=== PATIENT | female | born 1970 | race Caucasian/White ===

== ENCOUNTER 2018-11-02 05:35 | Day surgery (SDC) | payer BC ==
[~2018-11-02] VITALS: Ht 172.7 cm; Wt 74.8 kg
--- NOTE | ~2018-11-02 | OR ---
[facility] [address], [place] [address] [place] DATE OF OPERATION: 11/02/2018 SURGEON: Aaron Valenzuela MD PREOPERATIVE DIAGNOSIS: Rotator cuff tear/superior labral tear from anterior to posterior right shoulder. POSTOPERATIVE DIAGNOSIS: Partial thickness rotator cuff tear, right shoulder with impingement of acromioclavicular joint arthritis right shoulder. There was labral fraying but no superior labral tear from anterior to posterior tear. WHAT WAS DONE: The patient was taken to the operating room. After anesthesia was induced and airway secured, the patient was positioned, prepped and draped in a routine sterile fashion. The bony topography was outlined with a skin marking pen, and the arthroscope was inserted through the standard posterior portal. Arthroscopy of the shoulder joint revealed an unremarkable humeral head and unremarkable labrum. There was a tiny amount of fraying at the insertion of the supraspinatus and the infraspinatus, but no full-thickness tears were noted. An anterior portal was created using a switching stick technique and a probe was introduced. Again, there was some fraying of the labrum and the undersurface of the supraspinatus and infraspinatus as well as some fraying of the long head of the biceps. This was gently debrided with a VAPR electrosurgical device inserted through the anterior portal. Once this had been gently debrided, the probe was re-introduced and again we could not identify any full-thickness rotator cuff tear. There was some fraying of the long head of the biceps but over 80% of it was intact and there was no significant longitudinal split. We probed the labrum carefully with a probe and again there was no SLAP tear, just the anterior fraying. After we debrided all the frayed tissue, the scope was placed in the subacromial space, where there was a rather dense bursitis. An auxiliary lateral portal was created and a subacromial bursectomy was performed. Again careful inspection of the rotator cuff did not reveal any tears on the bursal side. We then used the VAPR to remove the soft tissue on the undersurface of the acromion, which was hooked anteriorly and the undersurface of the AC joint which had fairly significant degenerative arthritis with no residual articular cartilage on the end of the clavicle. After doing a generous subacromial decompression through the lateral portal, we re-directed the anterior portal into the AC joint and resected about 8 mm of the distal clavicle completely decompressing the rotator cuff and the AC joint. The subacromial space was then copiously irrigated and drained. The portals were closed and sterile dressings were applied. The patient was awakened and taken to the recovery room PATIENT NAME: CHRIS SARKAR OPERATIVE REPORT DATE OF : 72 REPORT #: [id number] PHYSICIAN: AARON VALENZUELA MD PCP: CHER ELDER MD REPORT IS CONFIDENTIAL AND NOT TO BE RELEASED WITHOUT AUTHORIZATION [address] [address] [place] and they arrived in stable condition. Counts were correct and antibiotic protocols were followed. Aaron Valenzuela MD WFB/MODL /[id number] Copies: ~ PATIENT NAME: CHRIS SARKAR OPERATIVE REPORT DATE OF : 72 REPORT #: [id number] PHYSICIAN: AARON VALENZUELA MD PCP: CHER ELDER MD REPORT IS CONFIDENTIAL AND NOT TO BE RELEASED WITHOUT AUTHORIZATION
[~2018-11-02 05:35] MED LIST: ATENOLOL50 MG PO; HYDROCHLOROTH12.5 MG PO; NORCO 7.5-3251 EACH PO; OMEPRAZOLE20 MG PO; TRAMADOL HCL50 MG PO; VENLAFAXINE HC100 MG PO
--- NOTE | 2018-11-02 08:40 | NUR ---
11/02/18 0840 [place] 0822-PATIENT ARRIVED TO PACU ON 6L MASK REACTIVE TO VOICE OPENING EYES VERY DROWSY. DENIES PAIN ABLE TO WIGGLE FINGERS GOOD CAP REFILL AND PALPABLE RIGHT RADIAL PULSE. ARM IN SLING AND ICE APPLIED. 3 SHOULDER INCISIONS CDI. SR. RR EVEN.
--- NOTE | 2018-11-02 09:20 | NUR ---
PT RETURNS TO DS TX ROOM FROM PACU ON . PT AWAKE AND ORIENTED AND DENIES PAIN, ONLY TINGLING IN OPERATIVE RIGHT UPPER EXTREMITY. PT DENIES NAUSEA. VSS. PT PROVIDED WITH WATER, SODA, AND FOOD. PT DENIES OTHER NEEDS AT THIS TIME. MOTHER AT BEDSIDE. CALL LIGHT WITHIN REACH
--- NOTE | 2018-11-02 09:43 | NUR ---
PT REQUESTING TO USE BATHROOM. PT SALINE LOCKED AND STAND BY ASSIST PROVIDED. PT TOLERATES AMBULATION AND IS ABLE TO VOID WITHOUT DIFFICULTY. PT BACK TO BED. ICE PLACED ON RIGHT SHOULDER. SLING REMIANS IN PLACE. CALL LIGHT WITHIN REACH. DC CRITERIA DISCUSSED WITH PT AND MOTHER.
[2018-11-02] MEDS ORDERED: NORCO 5-325 TA1 EACH PO (09:56)
[2018-11-02] MEDS ORDERED: ULTRAM50 MG PO (09:57)
--- NOTE | 2018-11-02 10:35 | NUR ---
PT MEETS DC CRITERIA. IV DC'D WNL. PRESSURE DRESSING APPLIED. PT REPORTS NUMBNESS/TINGLING IN ARM FROM BLOCK AND DENIES PAIN. DENIES NAUSEA. DC INSTRUCTIONS WITH PRECAUTIONS PROVIDED TO PT. PT VERBALIZES UNDERSTANDING AND DENIES FURHTER QUESTIONS. PRESCRIPTION WITH PAIN MEDICINE INSTRUCTION PACKET GIVEN. PT ALSO PROVIDED WITH SHOULDER ARTHROSCOPY INSTRUCTION SHEET FROM DR. CHENG OFFICE. PT TO RETURN TO 'S OFFICE IN 2 WEEKS FOR FOLLOW UP. PT TRANSPORTED IN WHEELCHAIR FROM DEPARTMENT IN STABLE CONDITION TO VEHICLE DRIVEN BY PT'S MOTHER.
== END 2018-11-02 10:35 | disposition home or self-care (01) ==
LOC: DS 05:35 → OPS 05:35 → DS 06:45 → OPS 10:35
PROVIDERS: Orthopaedic Surgery
PROC: 0RNJ4ZZ Release Right Shoulder Joint, Percutaneous Endoscopic Approach (ICD-10-PCS; 2018-11-02)
PROC: 0PB94ZZ Excision of Right Clavicle, Percutaneous Endoscopic Approach (ICD-10-PCS; principal; 2018-11-02 06:45)
DX: M19.011 Primary osteoarthritis, right shoulder (principal); M75.111 Incomplete rotator cuff tear or rupture of right shoulder, not specified as traumatic; I10 Essential (primary) hypertension; F17.210 Nicotine dependence, cigarettes, uncomplicated; G89.29 Other chronic pain; F12.90 Cannabis use, unspecified, uncomplicated; K21.9 Gastro-esophageal reflux disease without esophagitis; Z79.899 Other long term (current) drug therapy; Z86.718 Personal history of other venous thrombosis and embolism
CPT/HCPCS: 64415; 76942; J0330; J0690; J1100; J1885; J2250; J2405; J2704; J2765; J3010; J7120